=== PATIENT | female | born 1975 | race Caucasian/White ===

== ENCOUNTER → 2020-01-09 14:48 | Outpatient (BNVA) | payer OTHER, SELFPAY | PROVIDERS: Family Provider Nurse Practitioner; PCP Nurse Practitioner; Visit Provider Nurse Practitioner | DX: E88.81 Metabolic syndrome and other insulin resistance (principal); I10 Essential (primary) hypertension | CPT/HCPCS: 80053; 83036 ==

== ENCOUNTER 2020-03-13 11:35 | Outpatient (CLI) | payer OTHER, SELFPAY ==
--- NOTE | 2020-03-13 11:49 | XR_ITS ---
WS: [id number] ABDOMEN 1 VIEW(S) HISTORY: left flank pain COMPARISON: 07/01/2019 Normal bowel gas pattern. 4.5 mm calcification in the LEFT true pelvis. This calcification was not present on the radiograph fr om 07/01/2019. No additional calcifications. No bone abnormality. Prior cholecystectomy. XR/XR abdomen 1V* [id number] IMPRESSION: Suspicious for 4.5 mm calcification distal LEFT ureter. No calcification was id entified in this location on 07/01/2019.
[2020-03-13 13:05] LABS: Basophils # 0.1 10^3/uL (0.0-0.1); Basophils % 0.6 %; Eosinophils # 0.2 10^3/uL (0.0-0.8); Eosinophils % 1.3 %; Hematocrit 45.7 % (37.0-47.0); Hemoglobin 14.8 g/dL (11.5-15.3); Lymphocytes # 2.1 10^3/uL (0.8-4.8); Mean Corpuscular HGB Conc 32.4 g/dL (30.0-36.0); Mean Corpuscular Hemoglobin 28.9 pg (28.0-34.0); Mean Corpuscular Volume 89.3 fL (81-99); Mean Platelet Volume 11.7 fL (7.4-10.4); Monocytes # 0.5 10^3/uL (0.2-0.9); Monocytes % 3.6 %; Neutrophils # 10.8 10^3/uL (1.8-7.7); Neutrophils % 78.6 %; Nucleated Red Blood Cells % 0 %; Platelet Count 273 10^3/cmm (130-400); Red Blood Count 5.12 10^6/uL (4.1-5.3); Red Cell Distribution Width 13.4 % (12.1-15.1); White Blood Count 13.7 10^3/uL (4.0-10.0)
[2020-03-13 13:15] LABS: Bilirubin Urine Neg (NEGATIVE); Blood Urine 3+ (Negative); Glucose Urine UA Norm (Normal); Ketones Urine 1+ (Negative); Nitrate Urine Negative (Negative); Protein Urine Neg (Negative); Specific Gravity, Urine 1.015 (1.005-1.030); Urine Appearance Cloudy (CLEAR); Urine Color Yellow (Yellow); pH Urine 7 (5-7)
[2020-03-13 13:16] LABS: Add Urine Microscopic? YES; Amorphous Sediment Urine 2+; Bacteria Urine 2+; Leukocyte Esterase Urine Negative (Negative); RBC Urine 40-50 /hpf (0-2); Urobilinogen Urine Neg (Negative); WBC Urine 0-4 /hpf (0-5)
[2020-03-13 13:17] LABS: Add Urine Culture? No
== END 2020-03-13 11:36 | disposition home or self-care (01) ==
LOC: RAD 11:38
PROVIDERS: Family Provider Nurse Practitioner; PCP Nurse Practitioner; Visit Provider Nurse Practitioner
DX: R10.9 Unspecified abdominal pain (principal); Z87.442 Personal history of urinary calculi
CPT/HCPCS: 36415; 74018; 81001; 81003; 85025

== ENCOUNTER → 2020-03-23 16:18 | Outpatient (BNVA) | payer OTHER, SELFPAY | PROVIDERS: Family Provider Nurse Practitioner; PCP Nurse Practitioner; Visit Provider Nurse Practitioner | DX: Z87.442 Personal history of urinary calculi (principal) | CPT/HCPCS: 74018; 81000 ==

== ENCOUNTER 2021-05-31 16:09 | Outpatient (CLI) | payer OTHER, SELFPAY ==
[2021-05-31 16:57] LABS: Estmated Average Glucose 103; Hemoglobin A1C 5.2 % (4.0-6.0)
[2021-05-31 17:07] LABS: Urine Appearance Clear (CLEAR); Urine Color Orange (Yellow)
[2021-05-31 17:08] LABS: Add Urine Microscopic? YES
[2021-05-31 17:10] LABS: Alanine Aminotransferase 52 U/L (0-33); Albumin Level 4.2 g/dL (3.5-5.2); Alkaline Phosphatase 85 IU/L (35-105); Anion Gap 15.1 (5-19); Aspartate Amino Transferase 27 U/L (0-32); Blood Urea Nitrogen 12 mg/dL (6-20); Calcium 10.1 mg/dL (8.5-10.5); Carbon Dioxide 21 mmol/L (22-29); Chloride 103 mmol/L (98-107); Chol HDL Ratio 3.14 mg/dL (0.0-4.40); Cholesterol 135 mg/dL (0-200); Globulin 2.5 g/dL (1.3-4.6); Glomerular Filtration Rate 76.6 mL/min (90-130); Glucose 85 mg/dL (65-115); HDL Cholesterol 43 mg/dL (60-100); LDL Cholesterol Calculated 55 mg/dL (50-129); Osmolality Calculated 279 mOsm/kg (285-295); Potassium 4.1 mmol/L (3.5-5.1); Sodium 135 mmol/L (136-145); Total Bilirubin 0.2 mg/dL (0.15-1.2); Total Protein 6.7 g/dL (6.6-8.7); Triglycerides 187 mg/dL (0-150); VLDL Cholestrol Calculation 37 mg/dL (0-30)
[2021-05-31 17:11] LABS: Add Urine Culture? No; Bacteria Urine 1+ /hpf; Calcium Oxalate Crystals Urine 15-25 /hpf; Squamous Epithelial Cell Urine 15-25 /hpf (0-5)
== END 2021-05-31 16:10 | disposition home or self-care (01) ==
LOC: LAB 16:17
PROVIDERS: PCP Nurse Practitioner; Visit Provider Nurse Practitioner
DX: E11.69 Type 2 diabetes mellitus with other specified complication (principal); E66.9 Obesity, unspecified
CPT/HCPCS: 80053; 80061; 81001; 83036

== ENCOUNTER → 2021-08-24 12:25 | Outpatient (BNVA) | payer OTHER, SELFPAY | PROVIDERS: PCP Nurse Practitioner; Visit Provider Nurse Practitioner | DX: Z87.442 Personal history of urinary calculi (principal) | CPT/HCPCS: 74018; 81000 ==

== ENCOUNTER → 2021-10-07 17:04 | Outpatient (BNVA) | payer OTHER, SELFPAY | PROVIDERS: PCP Nurse Practitioner; Visit Provider Nurse Practitioner | DX: R60.9 Edema, unspecified (principal); I10 Essential (primary) hypertension | CPT/HCPCS: 80053; 83880; 84443; 85025 ==

== ENCOUNTER → 2022-08-23 08:55 | Outpatient (BNVA) | payer SELFPAY | PROVIDERS: PCP Nurse Practitioner; Visit Provider Dermatology | DX: Z01.89 Encounter for other specified special examinations (principal) ==

== ENCOUNTER → 2023-11-21 10:41 | Outpatient (BNVA) | payer SELFPAY | PROVIDERS: PCP Nurse Practitioner; Visit Provider Dermatology | DX: Z01.89 Encounter for other specified special examinations (principal); Z13.9 Encounter for screening, unspecified ==

== ENCOUNTER 2024-08-21 18:05 | Emergency (ER) | payer OTHER, SELFPAY ==
[2024-08-21 18:07] VITALS: BP 135/83; PULSE 89; TEMP 36.4; O2SAT 97
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
[2024-08-21 19:20] VITALS: BP 129/79; PULSE 88; RESP 16; O2SAT 99
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
[2024-08-21 20:13] VITALS: BP 133/92; PULSE 86; RESP 16; O2SAT 97
[2024-08-21] MEDS: ketorolac 30 mg/mL INJ IVP (20:55)
[2024-08-21] MEDS: iohexol 350 mg/mL 500 mL Btl (per mL) IV (21:15)
[2024-08-21] MEDS: dexamethasone 10 mg/mL INJ IVP (21:51)
[2024-08-21] MEDS: orphenadrine 30 mg/mL Inj 2 mL 60 MG IVP (21:51)
[2024-08-21 21:57] VITALS: BP 133/69; PULSE 95; RESP 16; O2SAT 98
[2024-08-21 23:08] VITALS: BP 121/80; PULSE 85; RESP 16; O2SAT 95
== END 2024-08-21 23:06 | disposition home or self-care (01) ==
PROVIDERS: Emergency Provider Emergency Medicine; PCP Nurse Practitioner
DX: S06.0XAA Concussion with loss of consciousness status unknown, initial encounter (principal); S22.31XA Fracture of one rib, right side, initial encounter for closed fracture; E11.9 Type 2 diabetes mellitus without complications; E78.5 Hyperlipidemia, unspecified; I10 Essential (primary) hypertension; Z86.711 Personal history of pulmonary embolism; V89.2XXA Person injured in unspecified motor-vehicle accident, traffic, initial encounter
CPT/HCPCS: 70450; 70498; 71260; 72125; 74177; 96374; 96375; 99285; J1100; J1885; J2360

== ENCOUNTER 2024-08-28 16:14 | Outpatient (CLI) | payer OTHER, SELFPAY ==
--- NOTE | 2024-08-28 16:10 | USCV_ITS ---
Anuradha Morgan Age: 49 Gender: F : 1975 Exam Date: 08/28/2024 16:28 Ordering Phys: Jayden Brito Technologist: [place] [facility] [place]: [place] PROCEDURES: Venous duplex imaging was performed in only the right upper extremity. The following venous structures were evaluated: internal jugular vein, subclavian vein, axillary vein, and brachial veins. In addition, the radial vein and ulnar vein. FINDINGS: no dvt CONCLUSIONS No evidence of thrombus of the right upper extremity veins. Shaggy Greer MD (Electronically Signed) Final Date: 28 August 2024 17:03 S
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
== END 2024-08-28 16:15 | disposition home or self-care (01) ==
PROVIDERS: PCP Nurse Practitioner; Visit Provider Nurse Practitioner
DX: M79.601 Pain in right arm (principal); V89.2XXA Person injured in unspecified motor-vehicle accident, traffic, initial encounter
CPT/HCPCS: 73060; 73080; 93971

== ENCOUNTER 2025-05-18 18:24 | Outpatient (CLI) | payer OTHER, SELFPAY ==
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
--- NOTE | 2025-05-18 18:39 | XRR_ITS ---
PROCEDURE INFORMATION: Exam: XR Cervical Spine Exam date and time: 05/18/2025 6:41 PM Age: 50 years old Clinical indication: Pain; Cervicalgia; Additional info: M54.2 - cervicalgia TECHNIQUE: Imaging protocol: Radiologic exam of the cervical spine. 3 image(s) are submitted. Views: 2 or 3 views. COMPARISON: CT cervical spin wo con* [id number] 08/21/2024 6:47 PM FINDINGS: Bones/joints: Normal. No acute fracture. Normal alignment. Soft tissues: Unremarkable. XR/XR cervical spine 3V* [id number] IMPRESSION: No acute findings.
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
== END 2025-05-18 18:25 | disposition home or self-care (01) ==
LOC: RAD 18:29
PROVIDERS: PCP Nurse Practitioner; Visit Provider Nurse Practitioner
DX: M54.2 Cervicalgia (principal); M54.9 Dorsalgia, unspecified
CPT/HCPCS: 71100; 72040; 72072